=== PATIENT | female | born 1990 | race African-American/Black ===

== ENCOUNTER 2016-11-06 15:55 | Emergency (ER) | payer OTHER ==
--- NOTE | ~2016-11-06 | CT4 ---
[facility] A Service of [facility] RADIOLOGY TEXT RESULTS PATIENT: GABBY MONTAÑO LOCATION: [facility] : 88 UNIT #: [id number] AGE: [address]: Nakia Reyez SEX: F ORDER DR: [id number] [facility] [address] [place], [place] [address] [id number] E MR#: [id number] Acc #: [id number] NAME: GABBY MONTAÑO : 1990 SEX: F STUDY DATE/TIME: 11/06/2016 15:17 UNIT: [place] ROOM: STUDY DESCRIPTION: CT Abd and Pelv Wo Cont Attending Physician: Nakia Reyez P.A.-C. Ordering Physician: Nakia Reyez P.A.-C. Primary Care Physician: No Primary Care Physician MEDICAL IMAGING REPORT This report is preliminary unless electronic signature is present EXAM CT abdomen and pelvis, 11/06/2016. 1 HISTORY Left-sided abdominal pain with nausea for the last 2 weeks. Pain rates 8/10. TECHNIQUE Axial images were obtained through the abdomen and pelvis, without contrast. Multiplanar reformats were obtained. This CT exam was performed with one or more of the following radiation dose reduction techniques: automatic exposure control, adjustment of mA and/or kV according to patient size, and iterative reconstruction. COMPARISON STUDIES 08/18/2016 FINDINGS ABDOMEN: The lung bases are clear. The gallbladder is normal. No renal or ureteral stones are seen, and there is no hydronephrosis. The unenhanced solid organs are normal. No free fluid is seen. The unopacified GI tract is normal. PELVIS: There are no lower ureteral stones. The bladder is normal. Solid pelvic organs are normal. There is no free fluid. Unopacified GI tract is normal. IMPRESSION 1. No acute findings in the abdomen or pelvis. 2. No renal or ureteral stones. No hydronephrosis. 3. Grossly normal unopacified GI tract. [facility] A Service [facility] RADIOLOGY TEXT RESULTS PATIENT: GABBY MONTAÑO LOCATION: [place] : 88 UNIT #: [id number] AGE: [address]: Nakia Reyez SEX: F ORDER DR: Dictated by... Alex Ayala Jr., M.D. THIS IS AN ELECTRONICALLY VERIFIED REPORT Alex Ayala Jr., M.D. at 11/07/2016 8:12 AM NICA/moira TD: 11/06/2016 18:27 JOB #: [id number] MEDICAL IMAGING REPORT COPY
[2016-11-06 15:04] LABS: URINE SOURCE CLEAN CATCH
[2016-11-06 15:16] LABS: URINE APPEARANCE CLEAR; URINE BILIRUBIN NEG (NEG); URINE BLOOD NEG (NEG); URINE COLOR YELLOW; URINE GLUCOSE NEG (NEG); URINE KETONE NEG (NEG); URINE LEUKOCYTE ESTERASE NEG (NEG); URINE NITRATE NEG (NEG); URINE PROTEIN NEG (NEG); URINE SPECIFIC GRAVITY 1.022 (1.003-1.035)
[2016-11-06 15:20] LABS: CULTURE INDICATED? NO
[2016-11-13] LABS: CHLAMYDIA TRACH Not Detected (Not Detected); N GONOR Not Detected (Not Detected)
== END 2016-11-06 16:05 | disposition home or self-care (01) ==
LOC: CFTX 15:55
PROVIDERS: Physician Assistant
DX: N76.0 Acute vaginitis (principal); Z88.0 Allergy status to penicillin
CPT/HCPCS: 74176; 81003; 84703; 87491; 87591; 87808; 87905; 99284